=== PATIENT | female | born 1995 | race Caucasian/White ===

== ENCOUNTER 2025-03-04 19:06 | Inpatient (IN) ==
--- NOTE | 2025-03-04 19:38 | Emergency Department Note ---
Impression & Plan Depression, Suicidal ideation ED Provider Note HISTORY OF PRESENT ILLNESS: Patient is a 29-year-old female presenting for mental health evaluation. Patient reports for the last month she has been having progressively worsening depression and anxiety. Patient reports that this past week she started school again which is always a trigger for her. She reports in last 3 to 4 days she has been having more active thoughts of suicide with multiple plans. Reports that she sat in the tub and cut her left arm "because I wanted to prove that I could." She reports a suicide attempt back in 2019. Denies any previous inpatient psychiatric admissions. She does not currently take any medications for her mental health. She is very tearful on examination. Denies any auditory or visual hallucinations. Denies any homicidal ideation. ROS: as above PHYSICAL EXAM: Constitutional: Patient appears in no acute distress. HENT: Head: Normocephalic and atraumatic. Eyes: EOMI, PERRL Mouth/Throat: Mucous membranes moist. Neck: Trachea midline. Neck supple. Musculoskeletal: No edema, tenderness or deformity noted. Skin: Warm and dry. No rash, erythema, pallor or cyanosis. Superficial linear abrasions to the left forearm. Psychiatric: Tearful on examination. Flat affect. Neurological: Alert and keenly responsive. CN II-XII grossly intact, moving all extremities equally and fully. MDM: - Vitals signs showed hypertension - History obtained via patient. History as above. - Chronic conditions affecting care: anxiety/depression - Differential diagnoses include, but are not limited to: depression; UTI; drug intoxication; alcohol intoxication - External medical records reviewed. - Laboratory workup interpreted by myself showed normal WBC; stable electrolytes; negative hCG; normal TSH - Negative alcohol/acetaminophen/salicylate levels - COVID negative - UA negative for infection. - UDS positive for THC - Patient feeling very anxious in the emergency department. She was given 25 mg of p.o. Vistaril. She is also complaining of a headache during her stay in the ER and was given 1000 g of oral Tylenol. - Patient is a voluntary 201 and is seeking inpatient psychiatric treatment. She was evaluated by liaison for inpatient [facility] [place], [address] [place] [id number], and will be reviewed in the morning for potential placement. Patient will be monitored in the emergency department until an inpatient psychiatric unit bed is available. - Prior to disposition, care of patient was checked out to Dr. Bowles following a discussion of the patient's course. ASSESSMENT AND PLAN: Diagnosis: Depression; suicidal ideation Past Med/Surg History Problem List (Updated 03/05/25 @ 01:21 by Vandana Lovett MD) Suicidal ideation (Acute) Depression (Acute) Social History Smoking Status: Never smoker Preferred Language: Beninese Feels Safe at Home: Yes Gender Identity: Female Results & Data (ED) Vital Signs Vital Signs - 24 hr 03/04/25 19:09 03/04/25 21:09 03/04/25 23:40 Temperature 36.6 C Temperature Source Temporal Artery Scan Pulse Rate 83 Pulse Rate [Finger] 82 74 Respiratory Rate 18 16 20 Respiratory Effort / Characteristics Non-Labored Spontaneous Respiratory Depth Normal Normal Respiratory Pattern Regular Blood Pressure 146/82 H Blood Pressure [Right Arm] 126/86 110/71 Blood Pressure Mean 103 Blood Pressure Mean [Right Arm] 99 84 Pulse Oximetry 98 97 96 Oxygen Delivery Method Room Air Room Air Room Air Sepsis Recent Fever Within 48 Hours No Sepsis New/Unexplained Change in Mental Status No Sepsis Action Taken by Nursing No Action Required 03/05/25 01:04 Temperature Temperature Source Pulse Rate Pulse Rate [Finger] 76 Respiratory Rate 20 Respiratory Effort / Characteristics Respiratory Depth Respiratory Pattern Blood Pressure Blood Pressure [Right Arm] 110/70 Blood Pressure Mean Blood Pressure Mean [Right Arm] 83 Pulse Oximetry 96 Oxygen Delivery Method Room Air Sepsis Recent Fever Within 48 Hours Sepsis New/Unexplained Change in Mental Status Sepsis Action Taken by Nursing Laboratory Data 03/04/25 20:06 03/04/25 20:06 Lab Results 03/04/25 03/04/25 Range/Units 20:06 22:04 WBC 9.64 (4.8-10.8) K/ul RBC 4.61 (4.20-5.40) M/uL Hgb 13.8 (12.0-16.0) g/dl Hct 40.3 (37.0-47.0) % MCV 87.4 (80.0-100.0) fL MCH 29.9 (25.0-34.0) pg MCHC 34.2 (32.0-36.0) g/dL RDW Std Deviation 39.5 (36.4-46.3) fL RDW Coeff of Lan 12.4 (11.5-14.5) % Plt Count 226 (130-400) K/uL MPV 10.9 (9.4-12.4) fL Immature Gran % (Auto) 0.3 % Neut % (Auto) 67.9 % Lymph % (Auto) 22.5 % [place] % (Auto) 7.7 % Eos % (Auto) 1.1 % Baso % (Auto) 0.5 % Neut # (Auto) 6.54 H (1.40-6.50) K/uL Lymph # (Auto) 2.17 (1.20-3.40) K/uL [place] # (Auto) 0.74 H (0.11-0.59) K/uL Eos # (Auto) 0.11 (0.00-0.50) K/uL Baso # (Auto) 0.05 (0.00-0.20) K/uL Immature Gran # (Auto) 0.03 (0.01-0.20) K/uL Sodium 138 (136-145) mmol/L Potassium 3.7 (3.5-5.1) mmol/L Chloride 105 (98-107) mmol/L Carbon Dioxide 24 (21-32) mmol/L Anion Gap 9 (3-11) BUN 12 (6-23) mg/dl Creatinine 0.85 (0.6-1.2) mg/dl Est Cr Clr Drug Dosing 107.7 ml/min eGFR 96.24 BUN/Creatinine Ratio 14.1 (10-20) Glucose 90 (70-99(Fasting)) mg/dl Calcium 9.5 (8.6-10.3) mg/dl Total Bilirubin 1.2 H (0.2-1.0) mg/dl AST 15 (13-39) U/L ALT 17 (7-52) U/L Alkaline Phosphatase 60 (34-104) U/L Total Protein 8.1 (6.0-8.3) gm/dl Albumin 4.4 (3.4-5.0) gm/dl Globulin 3.7 (2.5-4.0) gm/dl Albumin/Globulin Ratio 1.2 (0.9-2) TSH 1.387 (0.300-4.500) uIu/ml HCG, Qual Negative (Negative) Urine Color Yellow Urine Appearance Clear (Clear) Urine pH 5.5 (4.5-7.5) Ur Specific [place] 1.011 (1.000-1.030) Urine Protein Negative (Negative) Urine Glucose (UA) Negative (Negative) Urine Ketones Negative (Negative) Urine Blood Negative (Negative) Urine Nitrite Negative (Negative) Urine Bilirubin Negative (Negative) Urine Urobilinogen Negative (Negative) Ur Leukocyte Esterase 1+ H (Negative) Urine WBC (Auto) 11-20 H (0-5) /hpf Urine RBC (Auto) 6-10 H (0-2) /hpf U Hyaline Cast (Auto) 0-2 (0-2) /lpf U Epithel Cells (Auto) 0-2 (0-2) /hpf Urine Bacteria (Auto) None Seen (None Seen) Urine Comment Salicylates < 3.0 L (3.0-30) mg/dl Urine Opiates Screen Neg (Neg) Ur Methadone, Qual Neg (Neg) Urine Fentanyl Screen Neg (Neg) Acetaminophen < 3 L (10-30) ug/ml Urine Barbiturates Neg (Neg) Ur Phencyclidine (PCP) Neg (Neg) U Amphetamin/Meth Scrn Neg (Neg) MDMA (Ecstasy) Screen Neg (Neg) U Benzodiazepines Scrn Neg (Neg) Ur Cocaine Metabolite Neg (Neg) U Marijuana (THC) Screen Pos H (Neg) Ethyl Alcohol mg/dL < 10.0 (<10.0) mg/dl SARS-CoV-2, RNA, NAAT NEGATIVE (NEGATIVE) Administered Medications Discontinued Medications Acetaminophen (Acetaminophen 500 Mg Tab) 1,000 mg PO NOW STA Stop: 03/04/25 22:36 Last Admin: 03/04/25 22:41 Dose: 1,000 mg Documented By: DORA Hydroxyzine HCl (Hydroxyzine Hcl 25 Mg Tab) 25 mg PO NOW STA Stop: 03/04/25 19:26 Last Admin: 03/04/25 19:38 Dose: 25 mg Documented By: FERNANDO Discharge Plan Visit Data Chief Complaint: Mental Health Evaluation Stated Complaint: EVAL ED Provider: Vandana Lovett Discharge Problem: Depression, Suicidal ideation Patient Disposition: Still a Patient Condition: Fair Forms Stand Alone Forms: [facility], Suicide Prevention Resources Referrals Referrals: PCP,NO [Physician] -
[2025-03-04 20:21] LABS: Hematocrit (blood only) 40.3 % (37.0-47.0); Hemoglobin 13.8 g/dl (12.0-16.0); Immature Granulocytes # (auto) 0.03 K/uL (0.01-0.20); Immature Granulocytes % (auto) 0.3 %; Mean Corpuscular Hemoglobin 29.9 pg (25.0-34.0); Mean Corpuscular Volume 87.4 fL (80.0-100.0); Platelet Count 226 K/uL (130-400); RDW Standard Deviation 39.5 fL (36.4-46.3); Red Blood Count 4.61 M/uL (4.20-5.40); White Blood Count 9.64 K/ul (4.8-10.8)
[2025-03-04 20:33] LABS: Anion Gap 9.0 (3-11); Bilirubin,Total 1.2 mg/dl (0.2-1.0); Calcium 9.5 mg/dl (8.6-10.3); Carbon Dioxide 24.0 mmol/L (21-32); Chloride 105.0 mmol/L (98-107); Potassium 3.7 mmol/L (3.5-5.1); Sodium 138.0 mmol/L (136-145)
[2025-03-04 20:38] LABS: Alanine Aminotransferase 17.0 U/L (7-52); Albumin Globulin Ratio 1.2 (0.9-2); Alkaline Phosphatase 60.0 U/L (34-104); Blood Urea Nitrogen 12.0 mg/dl (6-23); Creatinine Clr Calc Pharmacy 107.7 ml/min; Globulin 3.7 gm/dl (2.5-4.0); Glucose 90.0 mg/dl (70-99(Fasting)); Pregnancy Test, Serum Negative (Negative); Total Protein 8.1 gm/dl (6.0-8.3)
[2025-03-04 20:47] LABS: Acetaminophen < 3 ug/ml (10-30); Salicylate < 3.0 mg/dl (3.0-30)
[2025-03-04 20:52] LABS: Thyroid Stimulating Hormone 1.387 uIu/ml (0.300-4.500)
[2025-03-04 22:29] LABS: Appearance Urine Clear (Clear); Bacteria Urine Automated None Seen (None Seen); Cast Urine Automated 0-2 /lpf (0-2); Epithelial Cell Urine Auto 0-2 /hpf (0-2); Glucose Urine UA Negative (Negative)
[2025-03-04] MEDS: ACETAMINOPHEN 500 MG TAB PO STA (22:41)
[2025-03-04 22:52] LABS: Amphetamines+Metham, Urine Neg (Neg); MDMA (Ecstacy), Urine Neg (Neg); Marijuana, Urine Pos (Neg)
--- NOTE | 2025-03-05 05:16 | Emergency Department Note ---
ED Visit Note Date and Time: 03/05/2025 0100 Interval History: Sign out received from Dr. Lovett who reviewed details of the encounter. Patient was pending bed placement. Summary: patient is here voluntarily with suicidal ideation and a plan to cut herself. We are awaiting formal evaluation on this patient by staff from [facility] Disposition: the case will be signed out to Dr. Reyes for final disposition .
--- NOTE | 2025-03-05 06:45 | Emergency Department Note ---
ED Visit Note Received this patient in signout. Patient with some suicidal thoughts and rested here overnight awaiting review by [facility] inpatient psychiatric unit this morning for possible admission there. Evaluated by [facility] and accepted there for further inpatient psychiatric care on .
[2025-03-05] MEDS ORDERED: ALUMINUM/MAGNESIUM SUSP 30 ML UDC PO PRN (09:59)
[2025-03-05] MEDS ORDERED: MAGNESIUM HYDROXIDE SUSP 30 ML UDC PO PRN (09:59)
[2025-03-05] MEDS ORDERED: SODIUM CHLORIDE 0.65% NA SOLN 45 ML (OCEAN) PRN (09:59)
--- NOTE | 2025-03-05 13:42 | History & Physical ---
Date of Service March 05, 2025 Impression / Recommendations Impression Diagnostically consistent with bipolar disorder type II with current depressive episode as well as generalized anxiety disorder with panic attacks, ADHD per history and possible cluster B traits given family history. It seems the current depressive episode is in the context of discontinuation of previous psychiatric medication after symptom improvement, recent hypomania and multiple psychosocial stressors including relationship difficulties and academic/work pressures. She demonstrates insight and motivation for treatment. Discussed medication treatment options in detail. Discussed risks, benefits and alternatives. She consents to starting lamotrigine for BPAD type II mood stabilization due to previous benefit. She also consents to starting Wellbutrin extended release in the morning for depressive symptoms and potential ADHD benefit. Reviewed side effects including but not limited to fatal rash, need for slow titration, Pike Broderick syndrome, need for consistent use with Lamictal as well as decreased appetite/insomnia/increased heart rate/potential increased anxiety with Wellbutrin. She is motivated for and willing for outpatient therapy referral to focus on relationship stress, making decisions about what she wants for her future and improve coping skills. Psychoeducation provided regarding bipolar disorder, depression, anxiety and medication adherence importance. Overall I spent a total of 75 minutes for this admission including review of chart records, review of labwork, direct evaluation of the patient, counseling the patient, ordering medication, risk assessment, discussion with the psychiatric liason RN and documentation in the electronic health record. (1) Suicidal ideation: (2) Bipolar 2 disorder: (3) Bipolar depression: (4) Generalized anxiety disorder with panic attacks: (5) ADHD: (6) Migraines: Plan 03/05/2025: The patient was admitted to the [facility] ([facility] unit) on q15 min checks (behavioral with suicide precautions) for safety. The patient will participate in group, recreational, and milieu therapies and will be offered additional individual and family sessions as clinically appropriate. -Start lamictal 25mg HS -Start Wellbutrin XL 150mg qAM -Continue Topimax 50mg HS for migraines -Imitrex, motrin and zofran prn for current migraine symptoms per her request -Symptom questionnaires: lee bpd, MDQ, PHQ-9, JAVY-7 Inventory Assets Strengths: supportive relationships, willing to get treatment Needs: safety and stabilization, medication adjustment, additional coping skills, increased outpatient services Suicide Risk Level Suicide Risk Level: High-Moderate (q15 min suicide checks) (increased depression and SI with recent self-harm but feels safe in the hospital and feels able to ask for increased support) Suicide Risk Level Comments: Risk Factors Assessment Male: No : Yes Do You Have Access To A Gun?: No Health Problems: No Mental Health Diagnoses: Yes Substance Use Disorders: No Previous Attempt: No Family History of Suicide: No Previous Psychiatric Hospitalization: No Hopelessness: Yes Protective Factors Assessment 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 Chief Complaint "I'll sink into this really dark low". History of Present Illness Ivone presents for psychiatric admission for worsening depressive symptoms and intensifying suicidal thoughts with possible plans of drowning herself or slicing her wrists to bleed to and with a recent episode of self-harm rehearsal behaviors in the last week. 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 Additionally she expresses guilt and conflicted feelings about wanting to end her relationship with her boyfriend, with whom she lives and who she has had a friendship with for almost 10 years, as well as recent infidelity that she hasn't disclosed to him. Seems this infidelity occurred in the context of a recent episode of hypomania which she estimates ended about a week ago just prior to the onset of these now intense depressive symptoms. She also feels overwhelmed by household responsibilities and describes feeling "pulled in every direction". She reports experiencing increasingly intense depressive symptoms coinciding with the start of her nursing school semester and following a recent few days stretch of hypomanic symptoms. She describes depressive symptoms including depressed mood, anhedonia (no longer engaging in enjoyable activities like going to the gym) , low self-worth, self-guilt, fatigue and very low motivation struggling to get out of bed. Sleep has become disrupted due to her demanding schedule. Her only focus has become "making it through each day". Suicidal thoughts, which she has experienced passively intermittently throughout her life, intensified acutely about 4 days ago with intrusive thoughts about drowning herself while in the bathtub and cutting her wrist in anticipation of possibly trying to by slicing her wrists deeper in the future. Ivone reports a history of bipolar disorder with previous episodes of hypomania lasting from a few hours to a couple of days characterized by increased energy, decreased need for sleep, heightened self-esteem, hypersexuality and increased risky behaviors including speeding. These episodes are often followed by depressive periods. She endorses a lifelong history of anxiety and panic attacks. Anxiety tends to lessen as her depression gets more severe but then worsens as the depression starts to lift. Typically she has 1 panic attack a month but over the last week has been having multiple panic attacks ~2-3. She is not currently prescribed any psychiatric medications. She does sometimes use Adderall intermittently for school and it helped with her anxiety. Psychiatric ROS notable for history of hypomania last occurred a few days ago prior to this current depressive episode. No history or current symptoms of psychosis nor PTSD nor eating disorder nor OCD. Past Psychiatric History Current Psychiatric Diagnosis: Major Depressive Disorder Outpatient Services: psychiatrist, hasn't seen her in months so scheduled for March at [facility] Previous Psych Admissions: n/a Do You Have Access To A Gun?: No History of Previous Suicide Attempt: Yes (2019 via sleeping pills) Past Medication Trials: celexa-hives Buspar, 45mg without benefit lexapro-didn't help Vyvanse-worsened panic attacks lamictal-seemed to be helping until stopped it (was on 100mg) Allergies Allergy/AdvReac Type Severity Reaction Status Date / Time citalopram [From Celexa] Allergy Hives Unverified 03/05/25 09:59 Home Medications Medication Instructions Recorded Confirmed Type topiramate 25 mg tablet (Topamax) 50 mg DAILY 03/05/25 03/05/25 History Family History Family History of: Depression and Bipolar (sister) Family Mental Health History Comment: Mother, grandmother, maternal aunts Alcohol History Hx of Alcohol Use Over the Past 12 Months: No AUDIT Total Score: 2 Smoking Use Have You Smoked or Used Tobacco Products in the Last 30 Days: No Smoking Status: Never smoker Substance History Hx of Prescription Med Misuse Over the Past 12 Months: No Hx of Over the Counter Med Misuse Over the Past 12 Months: No Hx of Inhalent Misuse Over the Past 12 Months: No Hx of Organic Substance Use Over the Past 12 Months: Yes (THC use) Hx of Illegal Substances/Street Drug Use Over Past 12 Months: No Problems as a Result of Past Substance Use: None Identified Cannabis use 1-2 times per month, helps with depression feels "at ease". 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 Other Number Of Children: 0 Beliefs That Will Affect Care: None Current Legal Problems: No Hx Legal Problems: No Hx Traumatic Life Events: Yes Patient History Medical History (Updated 03/05/25 @ 16:48 by Rosalinda Hudson MD) ADHD Social History Smoking Status: Never smoker Preferred Language: Norwegian Communication Ability: Effective Audio Video Repairer Required: No Beliefs That Will Affect Care: None Feels Safe at Home: Yes Gender Identity: Female Assistive Devices: Glasses Review of Systems Review of Systems: All systems reviewed & are unremarkable except as noted in HPI & below Physical Exam Psychiatric: Orientation: alert and oriented x 3 Apperance: appropriately dressed and appropriately groomed Eye Contact: good eye contact Motor Behavior: no abnormal motor movements Speech: normal rate/rhythm/volume of speech Affect: + depressed affect and + tearful affect Mood: + depressed mood and + anxious mood Thought Process: goal directed thought process Thought Content: reality based without delusions Suicidal Thoughts: denies suicidal plan and denies suicidal intent; + reports suicidal thoughts Homicidal Thoughts: denies homicidal thoughts Hallucinations: no auditory hallucinations and no visual hallucinations Cognition: recent memory grossly intact, remote memory grossly intact, attention grossly intact and language grossly intact Estimated Intelligence: consistent with education level Insight: + fair insight Judgment: + fair judgement Vital Signs (Past 24 Hours): Last Vital Signs Temp 36.7 C 03/05/25 10:01 Pulse 83 03/05/25 10:01 Resp 18 03/05/25 10:01 BP 110/70 03/05/25 01:04 Pulse Ox 96 03/05/25 10:01 O2 Del Method Room Air 03/05/25 10:01 Exam Statement: A physical exam was performed in the ED by Dr. Lovett for the purposes of medical clearance. I accept that physical as correct and adequate for the purposes of the inpatient physical exam. Results & Data ([facility]) Laboratory Results Laboratory Results - last 24 hr 03/04/25 03/04/25 20:06 22:04 WBC 9.64 RBC 4.61 Hgb 13.8 Hct 40.3 MCV 87.4 MCH 29.9 MCHC 34.2 RDW Std Deviation 39.5 RDW Coeff of Lan 12.4 Plt Count 226 MPV 10.9 Immature Gran % (Auto) 0.3 Neut % (Auto) 67.9 Lymph % (Auto) 22.5 [place] % (Auto) 7.7 Eos % (Auto) 1.1 Baso % (Auto) 0.5 Neut # (Auto) 6.54 H Lymph # (Auto) 2.17 [place] # (Auto) 0.74 H Eos # (Auto) 0.11 Baso # (Auto) 0.05 Immature Gran # (Auto) 0.03 Sodium 138 Potassium 3.7 Chloride 105 Carbon Dioxide 24 Anion Gap 9 BUN 12 Creatinine 0.85 Est Cr Clr Drug Dosing 107.7 eGFR 96.24 BUN/Creatinine Ratio 14.1 Glucose 90 Calcium 9.5 Total Bilirubin 1.2 H AST 15 ALT 17 Alkaline Phosphatase 60 Total Protein 8.1 Albumin 4.4 Globulin 3.7 Albumin/Globulin Ratio 1.2 TSH 1.387 HCG, Qual Negative Urine Color Yellow Urine Appearance Clear Urine pH 5.5 Ur Specific [place] 1.011 Urine Protein Negative Urine Glucose (UA) Negative Urine Ketones Negative Urine Blood Negative Urine Nitrite Negative Urine Bilirubin Negative Urine Urobilinogen Negative Ur Leukocyte Esterase 1+ H Urine WBC (Auto) 11-20 H Urine RBC (Auto) 6-10 H U Hyaline Cast (Auto) 0-2 U Epithel Cells (Auto) 0-2 Urine Bacteria (Auto) None Seen Urine Comment Salicylates < 3.0 L Urine Opiates Screen Neg Ur Methadone, Qual Neg Urine Fentanyl Screen Neg Acetaminophen < 3 L Urine Barbiturates Neg Ur Phencyclidine (PCP) Neg U Amphetamin/Meth Scrn Neg MDMA (Ecstasy) Screen Neg U Benzodiazepines Scrn Neg Ur Cocaine Metabolite Neg U Marijuana (THC) Screen Pos H U Marijuana THC Carboxy Pending Drug Screen Comment Pending Ethyl Alcohol mg/dL < 10.0 SARS-CoV-2, RNA, NAAT NEGATIVE Current Inpatient Medications Current Inpatient Medications: Current Inpatient Medications Acetaminophen (Acetaminophen 325 Mg Tab) 650 mg PO Q4H PRN PRN Reason: Headache or Minor Fever Stop: 04/04/25 09:58 Al Hydrox/Mg Hydrox/Simethicone (Aluminum/Magnesium Susp 30 Ml Udc) 30 ml PO Q4H PRN PRN Reason: GI Upset Stop: 04/04/25 09:58 Bismuth Subsalicylate (Bismuth Subsalicylate 262 Mg Chew) 2 tab PO Q30M PRN PRN Reason: Loose Stool/Diarrhea Stop: 04/04/25 09:58 Hydroxyzine HCl (Hydroxyzine Hcl 25 Mg Tab) 50 mg PO HSZ PRN PRN Reason: Insomnia Stop: 04/04/25 09:58 Hydroxyzine HCl (Hydroxyzine Hcl 25 Mg Tab) 25 mg PO Q4H PRN PRN Reason: Anxiety Stop: 04/04/25 09:58 Magnesium Hydroxide (Magnesium Hydroxide Susp 30 Ml Udc) 30 ml PO DAILY PRN PRN Reason: Constipation Stop: 04/04/25 09:58 Sodium Chloride (Sodium Chloride 0.65% Na Soln 45 Ml ([place])) 1 - 2 sprays NA PRN PRN PRN Reason: Nasal Dryness/Congestion Stop: 04/04/25 09:58
[2025-03-05] MEDS: ACETAMINOPHEN 325 MG TAB PO PRN (14:26)
[2025-03-05] MEDS: BISMUTH SUBSALICYLATE 262 MG CHEW PO PRN (14:28)
[2025-03-05] MEDS: IBUPROFEN 200 MG TAB PO PRN (17:31)
[2025-03-05] MEDS: ONDANSETRON 4 MG OD TAB PO PRN (17:32)
[2025-03-05] MEDS: lamoTRIgine 25 MG TAB PO SCH (21:00)
[2025-03-05] MEDS: TOPIRAMATE 50 MG TAB PO SCH (21:00)
--- NOTE | 2025-03-06 09:06 | Psychiatric Progress Note ---
Date of Service March 06, 2025 Impression / Recommendations Impression Diagnostically consistent with bipolar disorder type II with current depressive episode as well as generalized anxiety disorder with panic attacks, ADHD per history and possible cluster B personality disorder. It seems the current depressive episode is in the context of discontinuation of previous psychiatric medication after symptom improvement, recent hypomania and multiple psychosocial stressors including relationship difficulties and academic/work pressures. She demonstrates insight and motivation for treatment. A: Ongoing depression with SI and tearfulness, guilt and reflection of recent events. She is considering withdrawal from school and in the case may be open to exploring IOP for CBT/DBT. Overall, I spent a total of 50 minutes on this case including meeting with the patient, reviewing the chart, nursing report, multidisciplinary team meeting, orders, and documentation. (1) Suicidal ideation: (2) Bipolar 2 disorder: (3) Bipolar depression: (4) Generalized anxiety disorder with panic attacks: (5) ADHD: (6) Migraines: Plan 03/06/2025: -Reviewed and provided information about CBT/DBT IOP with [facility] -Continue current medications and tx plan 03/05/2025: The patient was admitted to the [facility] ([facility] unit) on q15 min checks (behavioral with suicide precautions) for safety. The patient will participate in group, recreational, and milieu therapies and will be offered additional individual and family sessions as clinically appropriate. -Start lamictal 25mg HS -Start Wellbutrin XL 150mg qAM -Continue Topimax 50mg HS for migraines -Imitrex, motrin and zofran prn for current migraine symptoms per her request -Symptom questionnaires: lee bpd, MDQ, PHQ-9, JAVY-7 Inventory Assets Strengths: supportive relationships, willing to get treatment Needs: safety and stabilization, medication adjustment, additional coping skills, increased outpatient services Suicide Risk Level Suicide Risk Level: High-Moderate (q15 min suicide checks) (increased depression and SI with recent self-harm but feels safe in the hospital and feels able to ask for increased support) Suicide Risk Level Comments: Risk Factors Assessment Male: No : Yes Do You Have Access To A Gun?: No Health Problems: No Mental Health Diagnoses: Yes Substance Use Disorders: No Previous Attempt: No Family History of Suicide: No Previous Psychiatric Hospitalization: No Hopelessness: Yes Protective Factors Assessment 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 Chief Complaint "A little better". Review of Systems Sleep Information Total Hours of Sleep: 8.25 Meal Information Percent Meal Consumed - Breakfast: 100 Percent Meal Consumed - Lunch: 75 Percent Meal Consumed - Dinner: 0 Subjective Subjective Patient was seen & assessed and interval progress reviewed with treatment team. Today she reports feeling better physically after awful migraine with nausea yesterday, Slept overnight. Recalls having more intrusive self-harm urges last night. She is tearful recalling how much relief she felt after self-harming and how she almost starting to cut more and deeper as a suicide attempt when her dogs barked and that snapped her out of that mindset. She wonders why she hasn't been able to use better coping skills compared to in the past but also reflects that in the past she's gotten tattoos when struggling as the pain provides the same type of emotional relief. This time finances preventing her from coping this way. We process the guilt and fear from her near suicide attempt and self- harm. She's thinking of taking the semester off of school, discussed option for IOP should this occur. Ongoing SI but lessening a bit today. Reviewed symptoms questionnaires together, consistent with BPAD type II, positive BPD screen and elevated PHQ-9 and JAVY-7. Physical Exam Psychiatric Orientation: alert and oriented x 3 Apperance: appropriately dressed and appropriately groomed Eye Contact: good eye contact Motor Behavior: no abnormal motor movements Speech: normal rate/rhythm/volume of speech Affect: + depressed affect and + tearful affect Mood: + depressed mood and + anxious mood Thought Process: goal directed thought process Thought Content: reality based without delusions Suicidal Thoughts: denies suicidal plan and denies suicidal intent; + reports suicidal thoughts Homicidal Thoughts: denies homicidal thoughts Hallucinations: no auditory hallucinations and no visual hallucinations Cognition: recent memory grossly intact, remote memory grossly intact, attention grossly intact and language grossly intact Estimated Intelligence: consistent with education level Insight: + fair insight Judgment: + fair judgement Vital Signs (Past 24 Hours) Last Vital Signs Temp 36.7 C 03/06/25 06:33 Pulse 64 03/06/25 06:33 Resp 16 03/06/25 06:33 BP 94/68 L 03/06/25 06:33 Pulse Ox 96 03/05/25 10:01 O2 Del Method Room Air 03/05/25 10:01 Results & Data ([facility]) Current Inpatient Medications Current Inpatient Medications: Current Inpatient Medications Acetaminophen (Acetaminophen 325 Mg Tab) 650 mg PO Q4H PRN PRN Reason: Headache or Minor Fever Stop: 04/04/25 09:58 Last Admin: 03/05/25 14:26 Dose: 650 mg Al Hydrox/Mg Hydrox/Simethicone (Aluminum/Magnesium Susp 30 Ml Udc) 30 ml PO Q4H PRN PRN Reason: GI Upset Stop: 04/04/25 09:58 Bismuth Subsalicylate (Bismuth Subsalicylate 262 Mg Chew) 2 tab PO Q30M PRN PRN Reason: Loose Stool/Diarrhea Stop: 04/04/25 09:58 Last Admin: 03/05/25 14:28 Dose: 2 tab Bupropion HCl (Bupropion Xl 150 Mg Tabcr) 150 mg PO QAM JASPER Stop: 04/05/25 08:59 Last Admin: 03/06/25 08:39 Dose: 150 mg Hydroxyzine HCl (Hydroxyzine Hcl 25 Mg Tab) 50 mg PO HSZ PRN PRN Reason: Insomnia Stop: 04/04/25 09:58 Hydroxyzine HCl (Hydroxyzine Hcl 25 Mg Tab) 25 mg PO Q4H PRN PRN Reason: Anxiety Stop: 04/04/25 09:58 Ibuprofen (Ibuprofen 200 Mg Tab) 400 mg PO Q4H PRN PRN Reason: Headache or Pain Stop: 04/04/25 14:20 Last Admin: 03/05/25 17:31 Dose: 400 mg Lamotrigine (Lamotrigine 25 Mg Tab) 25 mg PO HS JASPER; Protocol Stop: 04/04/25 21:59 Last Admin: 03/05/25 21:00 Dose: 25 mg Magnesium Hydroxide (Magnesium Hydroxide Susp 30 Ml Udc) 30 ml PO DAILY PRN PRN Reason: Constipation Stop: 04/04/25 09:58 Ondansetron HCl (Ondansetron 4 Mg Od Tab) 2 mg PO Q8H PRN PRN Reason: emesis Stop: 04/04/25 15:06 Last Admin: 03/05/25 17:32 Dose: 2 mg Sodium Chloride (Sodium Chloride 0.65% Na Soln 45 Ml ([place])) 1 - 2 sprays NA PRN PRN PRN Reason: Nasal Dryness/Congestion Stop: 04/04/25 09:58 Sumatriptan Succinate (Sumatriptan Succinate 25 Mg Tab) 25 mg PO DAILY PRN PRN Reason: Migraine Headache Stop: 04/04/25 14:20 Last Admin: 03/05/25 20:18 Dose: 25 mg Topiramate (Topiramate 50 Mg Tab) 50 mg PO HS JASPER Stop: 04/04/25 21:59 Last Admin: 03/05/25 21:00 Dose: 50 mg Mental Health & Subst Abuse Tx Psychiatrist Name of Psychiatrist: Binta Alex [facility] Date Of Appointment With Psychiatric Provider: 03/16/25 Psychiatric Appointment Comment: intake appt. Therapist Name of Therapist: n/a Production Or Plant Engineer Name of Production Or Plant Engineer: n/a Post Discharge Appointments Primary Care Physician Name Of Family Doctor/PCP: [facility] Home Health Services:: None Contact Information Discharge Address: [address] [place] [address] [address] [id number]
--- NOTE | 2025-03-07 09:21 | Psychiatric Progress Note ---
Date of Service March 07, 2025 Impression / Recommendations Impression Diagnostically consistent with bipolar disorder type II with current depressive episode as well as generalized anxiety disorder with panic attacks, ADHD per history and possible cluster B personality disorder. It seems the current depressive episode is in the context of discontinuation of previous psychiatric medication after symptom improvement, recent hypomania and multiple psychosocial stressors including relationship difficulties and academic/work pressures. She demonstrates insight and motivation for treatment. A: Ongoing depression but mood improving, slight increase in anxiety this morning which could be side effect of Wellbutrin, will continue to monitor this. SI significant lessening. SW working on IOP referral. Overall, I spent a total of 35 minutes on this case including meeting with the patient, reviewing the chart, nursing report, multidisciplinary team meeting, orders, and documentation. (1) Suicidal ideation: (2) Bipolar 2 disorder: (3) Bipolar depression: (4) Generalized anxiety disorder with panic attacks: (5) ADHD: (6) Migraines: Plan 03/07/2025: -Continue current medications and tx plan 03/06/2025: -Reviewed and provided information about CBT/DBT IOP with [facility] -Continue current medications and tx plan 03/05/2025: The patient was admitted to the [facility] ([facility]) on q15 min checks (behavioral with suicide precautions) for safety. The patient will participate in group, recreational, and milieu therapies and will be offered additional individual and family sessions as clinically appropriate. -Start lamictal 25mg HS -Start Wellbutrin XL 150mg qAM -Continue Topimax 50mg HS for migraines -Imitrex, motrin and zofran prn for current migraine symptoms per her request -Symptom questionnaires: lee bpd, MDQ, PHQ-9, JAVY-7 Inventory Assets Strengths: supportive relationships, willing to get treatment Needs: safety and stabilization, medication adjustment, additional coping skills, increased outpatient services Suicide Risk Level Suicide Risk Level: Moderate (q15 min suicide checks) (increased depression and SI with recent self-harm but SI lessening, mood improving, feels safe in the hospital and feels able to ask for increased support) Suicide Risk Level Comments: Risk Factors Assessment Male: No : Yes Do You Have Access To A Gun?: No Health Problems: No Mental Health Diagnoses: Yes Substance Use Disorders: No Previous Attempt: No Family History of Suicide: No Previous Psychiatric Hospitalization: No Hopelessness: Yes Protective Factors Assessment 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 Chief Complaint "A little more anxious this morning". Review of Systems Sleep Information Total Hours of Sleep: 6.5 Meal Information Percent Meal Consumed - Breakfast: 100 Percent Meal Consumed - Lunch: 75 Percent Meal Consumed - Dinner: 100 Subjective Subjective Patient was seen & assessed and interval progress reviewed with treatment team. Attending groups. Had a visit with her mom and sister. Improved mood last evening. Today reports difficulty sleeping last night. Today had some increased anxiety this morning that lasted a few hours, feeling better this afternoon. Wants to continue with current medications for now. Side effect of decreased appetite and some nausea with lunch. But she also reflects on recent weight loss injection prior to admission that could be contributing to this. Physical Exam Psychiatric Orientation: alert and oriented x 3 Apperance: appropriately dressed and appropriately groomed Eye Contact: good eye contact Motor Behavior: no abnormal motor movements Speech: normal rate/rhythm/volume of speech Affect: + anxious affect Mood: + depressed mood and + anxious mood Thought Process: goal directed thought process Thought Content: reality based without delusions Suicidal Thoughts: denies suicidal plan and denies suicidal intent; + reports suicidal thoughts ("almost non-existent" today) Homicidal Thoughts: denies homicidal thoughts Hallucinations: no auditory hallucinations and no visual hallucinations Cognition: recent memory grossly intact, remote memory grossly intact, attention grossly intact and language grossly intact Estimated Intelligence: consistent with education level Insight: + fair insight Judgment: + fair judgement Vital Signs (Past 24 Hours) Last Vital Signs Temp 36.5 C 03/07/25 06:24 Pulse 73 03/07/25 06:24 Resp 16 03/07/25 06:24 BP 98/65 L 03/07/25 06:24 Pulse Ox 96 03/05/25 10:01 O2 Del Method Room Air 03/05/25 10:01 Results & Data ([facility]) Current Inpatient Medications Current Inpatient Medications: Current Inpatient Medications Acetaminophen (Acetaminophen 325 Mg Tab) 650 mg PO Q4H PRN PRN Reason: Headache or Minor Fever Stop: 04/04/25 09:58 Last Admin: 03/05/25 14:26 Dose: 650 mg Al Hydrox/Mg Hydrox/Simethicone (Aluminum/Magnesium Susp 30 Ml Udc) 30 ml PO Q4H PRN PRN Reason: GI Upset Stop: 04/04/25 09:58 Bismuth Subsalicylate (Bismuth Subsalicylate 262 Mg Chew) 2 tab PO Q30M PRN PRN Reason: Loose Stool/Diarrhea Stop: 04/04/25 09:58 Last Admin: 03/05/25 14:28 Dose: 2 tab Bupropion HCl (Bupropion Xl 150 Mg Tabcr) 150 mg PO QAM JASPER Stop: 04/05/25 08:59 Last Admin: 03/07/25 08:59 Dose: 150 mg Hydroxyzine HCl (Hydroxyzine Hcl 25 Mg Tab) 50 mg PO HSZ PRN PRN Reason: Insomnia Stop: 04/04/25 09:58 Hydroxyzine HCl (Hydroxyzine Hcl 25 Mg Tab) 25 mg PO Q4H PRN PRN Reason: Anxiety Stop: 04/04/25 09:58 Ibuprofen (Ibuprofen 200 Mg Tab) 400 mg PO Q4H PRN PRN Reason: Headache or Pain Stop: 04/04/25 14:20 Last Admin: 03/06/25 09:59 Dose: 400 mg Lamotrigine (Lamotrigine 25 Mg Tab) 25 mg PO HS JASPER; Protocol Stop: 04/04/25 21:59 Last Admin: 03/06/25 21:03 Dose: 25 mg Magnesium Hydroxide (Magnesium Hydroxide Susp 30 Ml Udc) 30 ml PO DAILY PRN PRN Reason: Constipation Stop: 04/04/25 09:58 Ondansetron HCl (Ondansetron 4 Mg Od Tab) 2 mg PO Q8H PRN PRN Reason: emesis Stop: 04/04/25 15:06 Last Admin: 03/05/25 17:32 Dose: 2 mg Sodium Chloride (Sodium Chloride 0.65% Na Soln 45 Ml ([place])) 1 - 2 sprays NA PRN PRN PRN Reason: Nasal Dryness/Congestion Stop: 04/04/25 09:58 Sumatriptan Succinate (Sumatriptan Succinate 25 Mg Tab) 25 mg PO DAILY PRN PRN Reason: Migraine Headache Stop: 04/04/25 14:20 Last Admin: 03/05/25 20:18 Dose: 25 mg Topiramate (Topiramate 50 Mg Tab) 50 mg PO HS JASPER Stop: 04/04/25 21:59 Last Admin: 03/06/25 21:03 Dose: 50 mg Mental Health & Subst Abuse Tx Psychiatrist Name of Psychiatrist: Binta Alex [facility] Date Of Appointment With Psychiatric Provider: 03/16/25 Psychiatric Appointment Comment: intake appt. Therapist Name of Therapist: n/a Business Excellence Leader Name of Business Excellence Leader: n/a Post Discharge Appointments Primary Care Physician Name Of Family Doctor/PCP: [facility] Home Health Services:: None Contact Information Discharge Address: [address] [place] [address]
--- NOTE | 2025-03-08 09:01 | Psychiatric Progress Note ---
Date of Service March 08, 2025 Impression / Recommendations Impression Diagnostically consistent with bipolar disorder type II with current depressive episode as well as generalized anxiety disorder with panic attacks, ADHD per history and possible cluster B personality disorder. It seems the current depressive episode is in the context of discontinuation of previous psychiatric medication after symptom improvement, recent hypomania and multiple psychosocial stressors including relationship difficulties and academic/work pressures. She demonstrates insight and motivation for treatment. A: Mood improving and denies SI today. Family meeting scheduled for tomorrow. Tolerating medications without any side effects. Overall, I spent a total of 36 minutes on this case including meeting with the patient, reviewing the chart, nursing report, multidisciplinary team meeting, or ders, and documentation. (1) Suicidal ideation: (2) Bipolar 2 disorder: (3) Bipolar depression: (4) Generalized anxiety disorder with panic attacks: (5) ADHD: (6) Migraines: Plan 03/08/2025: -Continue current medications and tx plan 03/07/2025: -Continue current medications and tx plan 03/06/2025: -Reviewed and provided information about CBT/DBT IOP with [facility] -Continue current medications and tx plan 03/05/2025: The patient was admitted to the [facility] ([facility] mental health unit) on q15 min checks (behavioral with suicide precautions) for safety. The patient will participate in group, recreational, and milieu therapies and will be offered additional individual and family sessions as clinically appropriate. -Start lamictal 25mg HS -Start Wellbutrin XL 150mg qAM -Continue Topimax 50mg HS for migraines -Imitrex, motrin and zofran prn for current migraine symptoms per her request -Symptom questionnaires: lee bpd, MDQ, PHQ-9, JAVY-7 Inventory Assets Strengths: supportive relationships, willing to get treatment Needs: safety and stabilization, medication adjustment, additional coping skills, increased outpatient services Suicide Risk Level Suicide Risk Level: Moderate (q15 min suicide checks) (increased depression and SI with recent self-harm but now denies SI, mood improving, feels safe in the hospital and feels able to ask for increased support) Suicide Risk Level Comments: Risk Factors Assessment Male: No : Yes Do You Have Access To A Gun?: No Health Problems: No Mental Health Diagnoses: Yes Substance Use Disorders: No Previous Attempt: No Family History of Suicide: No Previous Psychiatric Hospitalization: No Hopelessness: Yes Protective Factors Assessment 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 Chief Complaint "So far so good". Review of Systems Sleep Information Total Hours of Sleep: 7.5 Meal Information Percent Meal Consumed - Breakfast: 75 Percent Meal Consumed - Lunch: 25 Percent Meal Consumed - Dinner: 75 Subjective Subjective Patient was seen & assessed and interval progress reviewed with nursing and social work. Attending groups. Slept well overnight. Mood is good so far today. Had some situational increased anxiety earlier in the day but it's lessening. She doesn't feel that Wellbutrin dose this morning caused excessively elevated mood nor activation nor anxiety. She likes the current medications. Discussed some of her anticipated stressors after she leaves the hospital and ways she is going to increase her supports. Physical Exam Psychiatric Orientation: alert and oriented x 3 Apperance: appropriately dressed and appropriately groomed Eye Contact: good eye contact Motor Behavior: no abnormal motor movements Speech: normal rate/rhythm/volume of speech Affect: + anxious affect Mood: + anxious mood Thought Process: goal directed thought process Thought Content: reality based without delusions Suicidal Thoughts: denies suicidal thoughts, denies suicidal plan and denies suicidal intent Homicidal Thoughts: denies homicidal thoughts Hallucinations: no auditory hallucinations and no visual hallucinations Cognition: recent memory grossly intact, remote memory grossly intact, attention grossly intact and language grossly intact Estimated Intelligence: consistent with education level Insight: + fair insight Judgment: + fair judgement Vital Signs (Past 24 Hours) Last Vital Signs Temp 36.6 C 03/08/25 06:38 Pulse 65 03/08/25 06:38 Resp 18 03/08/25 06:38 BP 117/76 03/08/25 06:40 Pulse Ox 99 03/08/25 06:38 O2 Del Method Room Air 03/08/25 06:38 Results & Data ([facility]) Current Inpatient Medications Current Inpatient Medications: Current Inpatient Medications Acetaminophen (Acetaminophen 325 Mg Tab) 650 mg PO Q4H PRN PRN Reason: Headache or Minor Fever Stop: 04/04/25 09:58 Last Admin: 03/05/25 14:26 Dose: 650 mg Al Hydrox/Mg Hydrox/Simethicone (Aluminum/Magnesium Susp 30 Ml Udc) 30 ml PO Q4H PRN PRN Reason: GI Upset Stop: 04/04/25 09:58 Bismuth Subsalicylate (Bismuth Subsalicylate 262 Mg Chew) 2 tab PO Q30M PRN PRN Reason: Loose Stool/Diarrhea Stop: 04/04/25 09:58 Last Admin: 03/05/25 14:28 Dose: 2 tab Bupropion HCl (Bupropion Xl 150 Mg Tabcr) 150 mg PO QAM JASPER Stop: 04/05/25 08:59 Last Admin: 03/08/25 08:45 Dose: 150 mg Hydroxyzine HCl (Hydroxyzine Hcl 25 Mg Tab) 50 mg PO HSZ PRN PRN Reason: Insomnia Stop: 04/04/25 09:58 Hydroxyzine HCl (Hydroxyzine Hcl 25 Mg Tab) 25 mg PO Q4H PRN PRN Reason: Anxiety Stop: 04/04/25 09:58 Ibuprofen (Ibuprofen 200 Mg Tab) 400 mg PO Q4H PRN PRN Reason: Headache or Pain Stop: 04/04/25 14:20 Last Admin: 03/06/25 09:59 Dose: 400 mg Lamotrigine (Lamotrigine 25 Mg Tab) 25 mg PO HS JASPER; Protocol Stop: 04/04/25 21:59 Last Admin: 03/07/25 21:14 Dose: 25 mg Magnesium Hydroxide (Magnesium Hydroxide Susp 30 Ml Udc) 30 ml PO DAILY PRN PRN Reason: Constipation Stop: 04/04/25 09:58 Ondansetron HCl (Ondansetron 4 Mg Od Tab) 2 mg PO Q8H PRN PRN Reason: emesis Stop: 04/04/25 15:06 Last Admin: 03/05/25 17:32 Dose: 2 mg Sodium Chloride (Sodium Chloride 0.65% Na Soln 45 Ml ([place])) 1 - 2 sprays NA PRN PRN PRN Reason: Nasal Dryness/Congestion Stop: 04/04/25 09:58 Sumatriptan Succinate (Sumatriptan Succinate 25 Mg Tab) 25 mg PO DAILY PRN PRN Reason: Migraine Headache Stop: 04/04/25 14:20 Last Admin: 03/05/25 20:18 Dose: 25 mg Topiramate (Topiramate 50 Mg Tab) 50 mg PO HS JASPER Stop: 04/04/25 21:59 Last Admin: 03/07/25 21:13 Dose: 50 mg Mental Health & Subst Abuse Tx Psychiatrist Name of Psychiatrist: Mel Barahona [facility] - In Person Psychiatrist's Date Of Appointment With Psychiatric Provider: 03/12/25 Time of Appointment with Psychiatrist: 2PM Psychiatric Appointment Comment: [address] [place] [address] [address] [place] [id number] Therapist Name of Therapist: [facility] Therapist's Date of Therapist Appointment: 03/13/25 Time of Therapist Appointment: 2:30PM Therapy Appointment Comment: Link for intake will be sent to your email: Environmental Engineer Name of Environmental Engineer: n/a Post Discharge Appointments Primary Care Physician Name Of Family Doctor/PCP: [facility] Home Health Services:: None Contact Information Discharge Discharge Address: [facility] [address] [address]
[2025-03-08 13:17] LABS: Marijuana Quant, GCMS Urine 27 ng/mL (<5)
--- NOTE | 2025-03-09 08:46 | Discharge Summary ---
Date of Service March 09, 2025 History of Present Illness Ivone presents for psychiatric admission for worsening depressive symptoms and intensifying suicidal thoughts with possible plans of drowning herself or slicing her wrists to bleed to and with a recent episode of self-harm rehearsal behaviors in the last week. 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 Additionally she expresses guilt and conflicted feelings about wanting to end her relationship with her boyfriend, with whom she lives and who she has had a friendship with for almost 10 years, as well as recent infidelity that she hasn't disclosed to him. Seems this infidelity occurred in the context of a recent episode of hypomania which she estimates ended about a week ago just prior to the onset of these now intense depressive symptoms. She also feels overwhelmed by household responsibilities and describes feeling "pulled in every direction". She reports experiencing increasingly intense depressive symptoms coinciding with the start of her nursing school semester and following a recent few days stretch of hypomanic symptoms. She describes depressive symptoms including depressed mood, anhedonia (no longer engaging in enjoyable activities like going to the gym) , low self-worth, self-guilt, fatigue and very low motivation struggling to get out of bed. Sleep has become disrupted due to her demanding schedule. Her only focus has become "making it through each day". Suicidal thoughts, which she has experienced passively intermittently throughout her life, intensified acutely about 4 days ago with intrusive thoughts about drowning herself while in the bathtub and cutting her wrist in anticipation of possibly trying to by slicing her wrists deeper in the future. Ivone reports a history of bipolar disorder with previous episodes of hypomania lasting from a few hours to a couple of days characterized by increased energy, decreased need for sleep, heightened self-esteem, hypersexuality and increased risky behaviors including speeding. These episodes are often followed by depressive periods. She endorses a lifelong history of anxiety and panic attacks. Anxiety tends to lessen as her depression gets more severe but then worsens as the depression starts to lift. Typically she has 1 panic attack a month but over the last week has been having multiple panic attacks ~2-3. She is not currently prescribed any psychiatric medications. She does sometimes use Adderall intermittently for school and it helped with her anxiety. Psychiatric ROS notable for history of hypomania last occurred a few days ago prior to this current depressive episode. No history or current symptoms of psychosis nor PTSD nor eating disorder nor OCD. Physical Exam Vital Signs (Past 24 Hours) Last Vital Signs Temp 36.7 C 03/09/25 06:40 Pulse 87 03/09/25 06:40 Resp 18 03/09/25 06:40 BP 121/73 03/09/25 06:44 Pulse Ox 98 03/09/25 06:40 O2 Del Method Room Air 03/09/25 06:40 Principal Diagnosis Bipolar Affective Disorder Type II, current depressive episode Psychiatric Data See daily stay summary. In short, patient was engaged with the social/therapeutic milieu of the unit, safety was maintained and the patient was cooperative with care. Medication changes included initiation of lamictal for mood stabilization and Wellbutrin XL 150mg daily for bipolar type II depression and they tolerated this well. A support session was held and safety plan was completed prior to discharge. They participated in safety planning and in discussions about ways to seek sup port and recognizing warning signs and utilizing coping skills. Reviewed ways to have their safety plan and contacts easily available should thoughts of SI re- emerge in the future. Reviewed importance of seeking emergency care should SI intensify, worsen or should they feel unsafe in the future which they agree to do. On the day of discharge they stated their mood was "anxious but good" and remained future-oriented including spending time with her sister, going out for coffee and meals, relaxing, going to the movies tonight, seeing her dogs and engaging in aftercare appointments for psychiatry, and [facility] for CBT/DBT Day of Discharge Assessment Today the patient voices readiness for discharge. They note improvement in mood and anxiety. They deny thoughts of harm to self or others. Thoughts are organized and they are clinically improved from admission. There is no evidence of psychosis. They improved in the hospital with support and medication adjustments. They agree to take medications as prescribed and keep follow-up appointments. At the time of the discharge they are deemed to be stable and appropriate for outpatient level of care. They are not deemed to be at imminent risk of harm to self or others. They are aware of emergency and crisis services. Knows to call 911 or go to nearest emergency care center if in a crisis which cannot be handled as an outpatient. Suicide risk assessment: Acute risk is low given improvement in mood and denial of SI, lack of access to lethal means, improvement in sleep, hopefulness. Chronic risk is moderate given some non-modifiable risk factors: psychiatric co-morbid diagnoses, hx self-harm, mood disorder, but also with protective factors including employed, good social support, sense of responsibility to family and social supports, outpatient care in place, positive coping skills, positive problem solving, willingness to engage with treatment and self-observation. Counseled on ways to reduce acute and chronic risk including engaging with outpatient providers, using safety plan if needed, utilizing supports, taking medication, and using coping skills. Modifiable risk factors of SI and depression were addressed during hospitalization through development of new coping skills, support meeting, safety planning, and medication adjustments. Discharge physical exam: See admission H&P, MSE per above and day of discharge summary. Overall, I spent a total of 35 minutes on this case including meeting with the patient, reviewing the chart, nursing report, multidisciplinary team meeting, discharge orders, anticipatory planning, safety planning, risk assessment and documentation. Transition of Care Transition Of Care Record: was reviewed with the patient Advance Directives Advance Directives Information Provided: Yes Advance Directives: No Mental Health Advance Directive: No Advance Directives on File: No Living Will: No Power of Diesel Fitter Mechanic: No Advance Directives Reason:: Declines as Mental Health Visit. 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7 eGFR 96.24 BUN/Creatinine Ratio 14.1 Glucose 90 Calcium 9.5 Total Bilirubin 1.2 H AST 15 ALT 17 Alkaline Phosphatase 60 Total Protein 8.1 Albumin 4.4 Globulin 3.7 Albumin/Globulin Ratio 1.2 TSH 1.387 HCG, Qual Negative Urine Color Yellow Urine Appearance Clear Urine pH 5.5 Ur Specific [place] 1.011 Urine Protein Negative Urine Glucose (UA) Negative Urine Ketones Negative Urine Blood Negative Urine Nitrite Negative Urine Bilirubin Negative Urine Urobilinogen Negative Ur Leukocyte Esterase 1+ H Urine WBC (Auto) 11-20 H Urine RBC (Auto) 6-10 H U Hyaline Cast (Auto) 0-2 U Epithel Cells (Auto) 0-2 Urine Bacteria (Auto) None Seen Urine Comment Salicylates < 3.0 L Urine Opiates Screen Neg Ur Methadone, Qual Neg Urine Fentanyl Screen Neg Acetaminophen < 3 L Urine Barbiturates Neg Ur Phencyclidine (PCP) Neg U Amphetamin/Meth Scrn Neg MDMA (Ecstasy) Screen Neg U Benzodiazepines Scrn Neg Ur Cocaine Metabolite Neg U Marijuana (THC) Screen Pos H U Marijuana THC Carboxy 27 H Drug Screen Comment SEE NOTE Ethyl Alcohol mg/dL < 10.0 SARS-CoV-2, RNA, NAAT NEGATIVE Hospital Course (1) Suicidal ideation: (2) Bipolar 2 disorder: (3) Bipolar depression: (4) Generalized anxiety disorder with panic attacks: (5) ADHD: (6) Migraines: Plan 03/09/2025: -She feels safe and desires discharge 03/08/2025: -Continue current medications and tx plan 03/07/2025: -Continue current medications and tx plan 03/06/2025: -Reviewed and provided information about CBT/DBT IOP with [facility] -Continue current medications and tx plan 03/05/2025: The patient was admitted to the [facility] on q15 min checks (behavioral with suicide precautions) for safety. The patient will participate in group, recreational, and milieu therapies and will be offered additional individual and family sessions as clinically appropriate. -Start lamictal 25mg HS -Start Wellbutrin XL 150mg qAM -Continue Topimax 50mg HS for migraines -Imitrex, motrin and zofran prn for current migraine symptoms per her request -Symptom questionnaires: lee bpd, MDQ, PHQ-9, JAVY-7 Mental Health & Subst Abuse Tx Psychiatrist Name of Psychiatrist: Mel Barhaona [facility] - In Person Psychiatrist's Date Of Appointment With Psychiatric Provider: 03/12/25 Time of Appointment with Psychiatrist: 2PM Psychiatric Appointment Comment: [address] [place] [address] [place] [id number] Therapist Name of Therapist: Vadim [facility] Therapist's Date of Therapist Appointment: 03/13/25 Time of Therapist Appointment: 2:30PM Therapy Appointment Comment: Link for intake will be sent to your email: [email or web address] Name of American History Professor: n/a Post Discharge Appointments Primary Care Physician Name Of Family Doctor/PCP: [facility] Home Health Services:: None Contact Information Discharge Discharge Address[address] [address] [place], [place] [address] [id number] Discharge Plan Discharge Items Patient Disposition: Home - Self-Care Reason For Visit: MAJOR DEPRESSIVE DISORDER Discharge Diagnosis: Bipolar Affective Disorder Type II, depressive episode Condition on Discharge: Good Activity: Resume your previous activity Non-emergency contact: Primary Care Provider, Psychiatrist and Therapist Call non-emergency contact if: you have any medication questions and your sym ptoms worsen Follow-up/Referrals: Binta Alex CRNP [Primary Care Provider] - Diet: Regular Addtl Attending Provider Instructions: Optional mobile apps we discussed: -Suicide safety plan -Virtual Hope Box -Headspace $ SPECIAL CARE INSTRUCTIONS: 1. Follow through with your scheduled aftercare appointments. If unable to keep an appointment, please call to reschedule. 2. Take your medication only as prescribed. Medication should not be changed or stopped without the approval of your doctor. In the event of worsening symptoms or concerns about side effects, contact your doctor immediately. 3. Utilize new healthy coping skills, anger management skills, and stress management skills learned during your hospitalization. Journal feelings and process them with a support person. Identify stressors or situations that may result in relapse, deterioration or inappropriate behaviors and develop a plan to deal with those issues. 4. If your coping skills are ineffective and you are in crisis, contact your outpatient providers for direction. If unable to reach your providers, please call the [facility] CRISIS LINE AT , go to the [facility] walk-in center at [address], [place], or go to the closest Emergency Room. 5. Avoid alcohol and un-prescribed drugs. 6. You have been provided with the Mental Health Advance Directives Pamphlet for your review. 7. Your condition is stable for discharge to outpatient level of care, but recovery is an ongoing process. Ifthoughts to harm yourself or others return, follow the safety plan developed during your stay. Planning for a safe return home includes securing weapons. Our treatment team recommends weaponsbe removed from the home until your outpatient provider reassesses your progress. In rare cases where the items themselvescannot be removed, guns and ammunitionshould be secured separatelyand keys stored by a reliable personoutside of the home. If you were admitted on an involuntary commitment, the police or other legal authorities may be involved in this process. AFTERCARE APPOINTMENTS: * Please call your insurance company prior to your scheduled appointment to confirm your aftercare providers are covered. Take your insurance information to your appointments. WHO TO CALL AND WHEN: Medical Emergencies: For questions or emergencies related to your hospital stay, please contact the Inpatient Behavioral Health Unit at [phone]. A hot dimpling machine operator is on-call 25/01 for the Behavioral Health Unit for emergencies At any time you feel your situation is an emergency, you may also call 911 immediately. National Crisis Hotline: 988 Pending Studies at Discharge: No Stand-Alone Forms: My [facility] Medications and DC Order Prescriptions: New lamotrigine [Lamictal] 25 mg Tablet 25 mg PO HS 30 Days Qty: 30 0RF bupropion HCl 150 mg Tablet Extended Release 24 Hr 150 mg PO QAM 30 Days Qty: 30 0RF Changed topiramate [Topamax] 25 mg tablet 50 mg PO HS Qty: 0 0RF Discharge Orders: Discharge Order (Routine); Ordered 03/09/25 Ordered By: Rosalinda Hudson Admission Data Admit Date/Time: 03/05/25 09:21 Attending Provider: Rosalinda Hudson Admit Provider: Rosalinda Hudson Primary Care Provider: Binta Alex Other Interventions: Discharge Summary Assessment (RN) Last Done: 03/09/25 10:10 PSY Interdisciplinary Discharge Planning Last Done: 03/09/25 10:10 Coding Level of Care Code 28383 D/C day mgmt > 30 min Diagnoses Suicidal ideation R45.851 Bipolar 2 disorder F31.81 Bipolar depression F31.9 Generalized anxiety disorder with panic attacks F41.1; F41.0 ADHD F90.9 Migraines G43.909
== END 2025-03-09 11:28 | disposition home or self-care (01) | DRG 885 ==
LOC: ED 19:06 → 3S 03-05 09:21